=== PATIENT | female | born 1970 | race Caucasian/White ===

== ENCOUNTER → 2020-06-15 10:16 | Outpatient (BNVA) | payer MEDICARE, MEDICAID, SELFPAY | PROVIDERS: Family Provider Family Medicine; PCP Family Medicine; Visit Provider Family Medicine | DX: Z12.31 Encounter for screening mammogram for malignant neoplasm of breast (principal); E05.90 Thyrotoxicosis, unspecified without thyrotoxic crisis or storm; E78.00 Pure hypercholesterolemia, unspecified; J45.909 Unspecified asthma, uncomplicated; I10 Essential (primary) hypertension; F41.9 Anxiety disorder, unspecified; Z00.00 Encounter for general adult medical examination without abnormal findings; M51.9 Unspecified thoracic, thoracolumbar and lumbosacral intervertebral disc disorder; F32.9 Major depressive disorder, single episode, unspecified | CPT/HCPCS: 80053; 80061; 84443; 85025 ==

== ENCOUNTER → 2020-10-02 10:06 | Outpatient (BNVA) | payer MEDICARE, MEDICAID, SELFPAY | PROVIDERS: Family Provider Family Medicine; PCP Family Medicine; Visit Provider Family Medicine | DX: E05.90 Thyrotoxicosis, unspecified without thyrotoxic crisis or storm (principal); E78.00 Pure hypercholesterolemia, unspecified; F32.9 Major depressive disorder, single episode, unspecified; I10 Essential (primary) hypertension | CPT/HCPCS: 80061; 84443 ==

== ENCOUNTER → 2021-04-17 14:52 | Outpatient (BNVA) | payer MEDICARE, MEDICAID, SELFPAY | PROVIDERS: Family Provider Family Medicine; PCP Family Medicine; Visit Provider Family Medicine | DX: Z72.51 High risk heterosexual behavior (principal); Z76.89 Persons encountering health services in other specified circumstances; J30.1 Allergic rhinitis due to pollen; M51.9 Unspecified thoracic, thoracolumbar and lumbosacral intervertebral disc disorder; F41.9 Anxiety disorder, unspecified; F32.9 Major depressive disorder, single episode, unspecified; Z72.0 Tobacco use | CPT/HCPCS: 87491; 87591 ==

== ENCOUNTER → 2021-10-02 14:34 | Outpatient (BNVA) | payer MEDICARE, MEDICAID, SELFPAY | PROVIDERS: Family Provider Family Medicine; PCP Family Medicine; Visit Provider Nurse Practitioner Family | DX: J02.9 Acute pharyngitis, unspecified (principal); Z20.822 Contact with and (suspected) exposure to COVID-19 | CPT/HCPCS: 87635 ==

== ENCOUNTER → 2022-08-26 15:23 | Outpatient (BNVA) | payer MEDICARE, MEDICAID, SELFPAY | PROVIDERS: Family Provider Family Medicine; PCP Family Medicine; Visit Provider Family Medicine | DX: E05.90 Thyrotoxicosis, unspecified without thyrotoxic crisis or storm (principal); I10 Essential (primary) hypertension; E78.00 Pure hypercholesterolemia, unspecified; Z00.00 Encounter for general adult medical examination without abnormal findings; Z23 Encounter for immunization; M51.9 Unspecified thoracic, thoracolumbar and lumbosacral intervertebral disc disorder; Z72.0 Tobacco use; F41.9 Anxiety disorder, unspecified; F32.9 Major depressive disorder, single episode, unspecified | CPT/HCPCS: 80053; 80061; 84443; 85025 ==

== ENCOUNTER → 2023-08-04 09:37 | Outpatient (BNVA) | payer MEDICARE, MEDICAID, SELFPAY | PROVIDERS: Family Provider Family Medicine; PCP Family Medicine; Visit Provider Family Medicine | DX: E78.00 Pure hypercholesterolemia, unspecified (principal); E05.90 Thyrotoxicosis, unspecified without thyrotoxic crisis or storm; I10 Essential (primary) hypertension | CPT/HCPCS: 80053; 84443; 85025 ==

== ENCOUNTER 2024-05-28 06:58 | Outpatient (CLI) | payer MEDICARE, MEDICAID, SELFPAY ==
--- NOTE | 2024-05-28 07:15 | US_ITS ---
WS: [id number] RIGHT UPPER QUADRANT ULTRASOUND HISTORY: worsening post prandial abdominal pain COMPARISON: None available. Liver: 14.8 cm in length. Normal size liver and echogenicity. No bile duct dilatation or mass. Portal Vein: Normal hepatopetal flow with monophasic waveform. Gallbladder: Well-distended gallbladder with numerous stones. No pericholecystic fluid. No wall thick ening. CBD: 0.3 cm Pancreas: Not visualized. Right kidney: 9.5 cm in length. Normal size and echogenicity. No hydronephrosis or mass. Aorta and IVC: Unremarkable abdominal aorta and IVC. No ascites. US/US gall bladder [id number] IMPRESSION: Cholelithiasis without acute cholecystitis.
== END 2024-05-28 06:59 | disposition home or self-care (01) ==
LOC: RAD 06:59
PROVIDERS: Family Provider Family Medicine; PCP Family Medicine; Visit Provider Family Medicine
DX: K80.20 Calculus of gallbladder without cholecystitis without obstruction (principal)
CPT/HCPCS: 76705

== ENCOUNTER → 2024-06-08 09:51 | Outpatient (BNVA) | payer MEDICARE, MEDICAID, SELFPAY | PROVIDERS: Family Provider Family Medicine; PCP Family Medicine; Referring Provider Family Medicine; Visit Provider Student in an Organized Health Care Education/Training Program | DX: K80.20 Calculus of gallbladder without cholecystitis without obstruction (principal) | CPT/HCPCS: 99204 ==

== ENCOUNTER 2024-06-14 07:34 | Day surgery (SDC) | payer MEDICARE, MEDICAID, SELFPAY ==
--- NOTE | 2024-06-12 17:17 | P.ANESASSM_ITS ---
Pre-Anesthetic Assessment Height/Weight: Height 5 ft 4 in Preop Diagnosis: Cholecystitis Operation Date: 06/14/24 09:10 Proposed Procedures p Laparoscopic Cholecystectomy 77696, K80.20(Not Applicable) - Javier Castro MD Was Beta Chichi taken within 24 hours: N/A Was Clonidine taken within 24 hours: N/A Social Tobacco and No alcohol Exam alert, oriented x 3, clear to auscultation bilaterally and regular rate & rhythm Airway Submandibular: within normal limits Cervical ROM: within normal limits Mallampati: Class I Dentition: other (Edentulous) Anesthetic Plan ASA status: 3 Anesthesia: General Other: No prior issues with anesthesia NPO since midnight Current smoker GERD, controlled with omeprazole Hypothyroidism on Synthroid Hypertension, takes hydrochlorothiazide Labs ordered Plan for GETA Medications/Allergies Home Medications Medication Instructions Recorded Confirmed Last Taken Type gabapentin 600 mg tablet 600 mg PO BID 90 days #180 tabs 07/08/23 06/11/24 06/13/24 Rx levothyroxine 50 mcg tablet 50 mcg PO DAILY 90 days #90 tabs 07/08/23 06/11/24 06/14/24 Rx diclofenac sodium 1 % topical gel 2 g topical QID #100 grams 08/04/23 06/11/24 06/13/24 Rx (Voltaren Arthritis Pain) hydrochlorothiazide 25 mg tablet 25 mg PO DAILY #90 tabs 09/11/23 06/11/2406/13 Rx vitamin#30 30 mg iron-10 1 cap PO DAILY anemia #90 caps 12/01/23 06/11/24 06/13/24 Rx mg iron-folic acid 1 mg-omg3 capsule fluoxetine 20 mg capsule 20 mg PO DAILY 90 days #90 caps 03/09/24 06/11/24 06/13/24 Rx albuterol sulfate 90 mcg/actuation 2 puff inhalation Q6H PRN 05/06/24 06/11/24 06/13/24 Rx aerosol inhaler shortness of breath or wheezing #8.5 grams hydrocodone 10 mg-acetaminophen 1 tab PO BID PRN pain 30 days #60 05/06/24 06/11/24 06/13/24 Rx 325 mg tablet tabs omeprazole 20 mg capsule,delayed 20 mg PO BID #180 caps 05/06/24 06/11/24 06/13/24 Rx release pseudoephedrine HCl 60 mg tablet 60 mg PO Q6H PRN nasal congestion 05/06/24 06/11/24 06/13/24 Rx #30 tabs alprazolam 0.5 mg tablet 0.5 mg PO QID PRN Anxiety 06/11/24 06/11/24 06/13/24 History potassium chloride 10 mEq 10 meq PO BID 06/11/24 06/11/24 06/13/24 History tablet,extended release Allergies Allergy/AdvReac Type Severity Reaction Status Date / Time No Known Allergies Allergy Verified 06/11/24 12:18 [facility] Anesthesia Medical History GERD without esophagitis Psychiatric care Nicotine abuse Seasonal allergic rhinitis Intervertebral disc disease Anxiety and depression Asthma Hyperthyroidism Hypertension Hypercholesteremia Social History Smoking and tobacco/nicotine status: current every day tobacco/nicotine user Alcohol intake: never Substance/Drug Use: former Data Anesthesia Cardiac Studies: No Data to Display
[2024-06-14] VITALS (13 sets, daily range): BP systolic 92–124; BP diastolic 59–85; PULSE 62–85; RESP 13–26; TEMP 36.1–36.4; O2SAT 96–99
[2024-06-14] MEDS: sodium chloride 0.9% 1,000 ML 30 ML IV (07:54)
--- NOTE | 2024-06-14 09:58 | W.PM.OPSFHP ---
Same Day Surgery H&P Indication for Procedure/HPI DATE OF PROCEDURE: June 14, 2024 CHIEF COMPLAINT/INDICATIONFOR SURGICAL PROCEDURE: cholecystitis PREOP DIAGNOSIS: Cholecystitis PLANNED PROCEDURE: Operation Date: 06/14/24 09:55 Proposed Procedures p Laparoscopic Cholecystectomy 19239, K80.20(Not Applicable) - Javier Castro MD Medications/Allergies* Home Medications Medication Instructions Recorded Confirmed Type alprazolam 0.5 mg tablet 0.5 mg PO QID PRN Anxiety 06/11/24 06/11/24 History potassium chloride 10 mEq 10 meq PO BID 06/11/24 06/11/24 History tablet,extended release Allergies/Adverse Reactions Allergy/AdvReac Type Severity Reaction Status Date / Time No Known Allergies Allergy Verified 06/11/24 12:18 Current Medications: Generic Name Dose Route Start Last Admin Trade Name Freq PRN Reason Stop Dose Admin Sodium Chloride 1,000 mls @ 30 mls/hr 06/14/24 07:45 06/14/24 07:54 Sodium Chloride 0.9% IV 06/15/24 07:44 30 mls/hr .Q24H SAILAJA Administration Pertinent History/Comorbid Conditions* Medical History (Updated 05/28/24 @ 11:15 by Britany Wolff MD) GERD without esophagitis Psychiatric care Nicotine abuse Seasonal allergic rhinitis Intervertebral disc disease Anxiety and depression Asthma Hyperthyroidism Hypertension Hypercholesteremia Social History Smoking and tobacco/nicotine status: current every day tobacco/nicotine user Alcohol intake: never Substance/Drug Use: former Pertinent Exam Findings alert, oriented x 3, clear to auscultation bilaterally, regular rate & rhythm and procedure specific exam findings Abdomen soft, NT, ND Recommendations Surgery/Procedure today Other Plans: OR today for lap elsa, possible open Coding Level of Care Code Acute Code for Chg Fwd Time Spent (min) 30
[2024-06-14 10:15] LABS: Basophils # 0.1 10^3/uL (0.0-0.1); Basophils % 0.7 %; Eosinophils # 0.4 10^3/uL (0.0-0.8); Eosinophils % 4.7 %; Hematocrit 37.4 % (36-47); Lymphocytes # 2.9 10^3/uL (0.8-4.8); Lymphocytes % 38.5 %; Mean Corpuscular HGB Conc 33.4 g/dL (30-55); Mean Corpuscular Hemoglobin 27.1 pg (27-33); Mean Platelet Volume 8.7 fL (7.4-10.4); Monocytes # 0.7 10^3/uL (0.2-0.9); Monocytes % 8.5 %; Neutrophils # 3.62 10^3/uL (1.8-7.7); Neutrophils % 47.5 %; Nucleated Red Blood Cells % 0 %; Platelet Count 301 10^3/cmm (157-399); Red Blood Count 4.62 10^6/uL (3.85-5.65); Red Cell Distribution Width 12.9 % (12.1-15.1); White Blood Count 7.62 10^3/uL (3.29-11.43)
[2024-06-14 10:37] LABS: Blood Urea Nitrogen 16 mg/dL (6-20); Calcium 8.8 mg/dL (8.5-10.5); Carbon Dioxide 28 mmol/L (22-29); Chloride 102 mmol/L (98-107); Creatinine Clr Calc Pharmacy 87.7541; Glomerular Filtration Rate 87.9 mL/min (90-130); Glucose 104 mg/dL (65-115); Osmolality Calculated 289 mOsm/kg (285-295); Sodium 139 mmol/L (136-145)
[2024-06-14 10:38] LABS: Anion Gap 13.1 (5-19); Potassium 4.1 mmol/L (3.5-5.1)
[2024-06-14] MEDS: ceFAZolin 2,000 mg SDV 2000 MG IVP (10:48)
[2024-06-14] MEDS: lidocaine-epi 2% PF 1:200,000 20 mL SDV XX (11:00)
[2024-06-14] MEDS: BUPivacaine 0.25% INJ 10 mL INJECTION (11:00)
--- NOTE | 2024-06-14 12:10 | W.PM.BPONFUL ---
Pathology: gallbladder with multiple large stones Implant(s): NA Anesthesia: general anesthesia Complications: NA Brief history/preop diagnosis: 54yo female who presents with symptomatic cholelithiasis. Risks and benefits were discussed and patient agreed to proceed with laparoscopic cholecystectomy. Full operative report: I discussed the risks and benefits of laparoscopic cholecystectomy, and obtained consent prior to proceeding to the operating room. SCDs were utilized. Prophylactic antibiotics were administered. General anesthesia was induced. The patient was placed supine, and she was prepped and draped in the usual sterile fashion. Insufflation to 15mmHg was achieved using a Veress needle at [place]. A 5mm optiview trocar was placed at the umbilicus under direct visualization. The left upper quadrant was inspected, and no injuries were noted. Two 5mm ports were placed in the right upper quadrant, and a 12mm working port was placed in the epigastrium. The gallbladder was then retracted cephalad through the lateral RUQ port, and the infundibulum grabbed through the medial RUQ port and retracted laterally. The gallbladder was not inflammed but contained multiple large stones and thus consistent with her diagnosis of symptomatic cholelithiasis. I proceeded to score the peritoneum over the medial aspect of the gallbladder using a laparoscopic hook with electrocautery. Then the infundibulum was retracted medially in order to score the peritoneum over the lateral aspect of the galbladder. Using a combination of energy and blunt dissection with the [place] and a Kittner dissector, the cystic artery and cystic duct were dissected. I then proceeded to dissect the cystic plate in order to to achieve the critical view of safety. The cystic artery and the cystic duct were clipped three times (leaving two clips on the proximal end of both structures). I then proceeded to dissect the gallbladder off the liver using hook electrocautery. The specimen was placed in an endocatch bag and retrieved from the abdomen through the port on the epigastrium. I then irrigated the gallbladder fossa with 2L of NS to confirm adequate hemostasis and the absence of any bile leaks. The gallbladder fossa was then cauterized again. Prior to ending the laparoscopic portion, I examined the rest of the abdomen and did not find any abnormalities or injuries. The abdomen was then desufflated, and the 12mm port in the epigastrium was closed using 0 vicryl on a UR needle after irrigating copiously. Skin was closed using 4-0 monocryl and surgical glue. The patient woke up from anesthesia and transferred to PACU without any complications. Condition: stable Dispostion: home
[2024-06-14] MEDS: fentaNYL 50 mcg/mL INJ 2mL IVP (12:45)
--- NOTE | 2024-06-14 13:38 | ANE.PACU2 ---
Inpatient post-anesthesia follow up: Airway intact: Yes Vital signs: Temperature 97.3 F Pulse Rate 63 Respiratory Rate 18 Blood Pressure 96/59 Pulse Oximetry 96 Oxygen Delivery Me thod Room Air Oxygen Flow Rate 6 Fraction of Inspir ed Oxygen Hydration adequate: Yes Nausea and vomiting: No Pain level: 1 Mental status: Baseline
== END 2024-06-14 13:38 | disposition home or self-care (01) ==
PROVIDERS: Student in an Organized Health Care Education/Training Program; PCP Family Medicine; Visit Provider Student in an Organized Health Care Education/Training Program
PROC: 0FT44ZZ Resection of Gallbladder, Percutaneous Endoscopic Approach (ICD-10-PCS; CPT 47562; principal; 2024-06-14 09:45)
DX: K80.10 Calculus of gallbladder with chronic cholecystitis without obstruction (principal); K21.9 Gastro-esophageal reflux disease without esophagitis; E03.9 Hypothyroidism, unspecified; I10 Essential (primary) hypertension; E78.00 Pure hypercholesterolemia, unspecified; F17.200 Nicotine dependence, unspecified, uncomplicated
CPT/HCPCS: 47562; 80048; 85025; 88304; J0131; J0690; J1100; J1170; J1885; J2250; J2371; J2405; J2704; J2710; J3010; J3490; J7030

== ENCOUNTER → 2024-06-28 08:21 | Outpatient (BNVA) | payer MEDICARE, MEDICAID, SELFPAY | PROVIDERS: Family Provider Family Medicine; PCP Family Medicine; Visit Provider Student in an Organized Health Care Education/Training Program | DX: Z90.49 Acquired absence of other specified parts of digestive tract (principal); Z98.890 Other specified postprocedural states | CPT/HCPCS: 99024 ==

== ENCOUNTER 2024-12-14 11:34 | Outpatient (CLI) | payer MEDICARE, MEDICAID, SELFPAY ==
--- NOTE | 2024-12-14 11:40 | MM_ITS ---
WS: [id number] BILATERAL 3D TOMOSYNTHESIS DIGITAL SCREENING MAMMOGRAPHY WITH CAD CLINICAL INFORMATION: Z12.39 - Encounter for other screening for malignant neop... HISTORY: Screening mammogram. No current complaints. COMPARISON: 2016 TECHNIQUE: Bilateral CC and MLO views. FINDINGS: Scattered fibroglandular densities bilaterally. No suspicious focal mass, asymmetry, calcifications, or architectural distortion. No evidence of malignancy. MM/MM scr tomosynthesis [id number] IMPRESSION: DENSITY: There are scattered areas of fibroglandular density. BI-RADS: 1 - Negative. FOLLOW UP: 1 Year Follow-up Recommend return to annual screening mammography.
== END 2024-12-14 11:35 | disposition home or self-care (01) ==
LOC: MOBLMAM 11:38
PROVIDERS: Family Provider Family Medicine; PCP Family Medicine; Visit Provider Family Medicine
DX: Z12.31 Encounter for screening mammogram for malignant neoplasm of breast (principal); R92.323 Mammographic fibroglandular density, bilateral breasts
CPT/HCPCS: 77063; 77067

== ENCOUNTER 2025-01-10 11:25 | Emergency (ER) | payer MEDICARE, MEDICAID, SELFPAY ==
[2025-01-10 11:33] VITALS: BP 120/83; PULSE 90; TEMP 36.7; O2SAT 96; BMI 23.1
--- NOTE | 2025-01-10 11:34 | XRR_ITS ---
PROCEDURE INFORMATION: Exam: XR Left Ankle Exam date and time: 01/10/2025 11:47 AM Age: 54 years old Clinical indication: Injury or trauma; Fall; Blunt trauma; Ankle; Left TECHNIQUE: Imaging protocol: Radiologic exam of the left ankle. Views: 3 or more views. COMPARISON: CR XR foot LT min 3V* [id number] 01/10/2025 11:46 AM FINDINGS: Bones/joints: No fracture or dislocation is noted. There are mild degenerative changes. Soft tissues: Normal. XR/XR ankle LT min 3V* [id number] IMPRESSION: No acute findings.
--- NOTE | 2025-01-10 11:34 | XRR_ITS ---
PROCEDURE INFORMATION: Exam: XR Left Foot Exam date and time: 01/10/2025 11:46 AM Age: 54 years old Clinical indication: Injury or trauma; Other: Not specified; Blunt trauma; Foot; Left TECHNIQUE: Imaging protocol: Radiologic exam of the left foot. Views: 3 or more views. COMPARISON: No relevant prior studies available. FINDINGS: Bones/joints: There may be a fracture involving the distal phalanx of the 4th digit. This is not definite. Appearance could be related to pseudo fracture secondary to over hanging edges. Recommend clinical correlation. No fractures are otherwise noted. There is no evidence of a dislocation. Bony mineralization is normal. Soft tissues: Normal. XR/XR foot LT min 3V* [id number] IMPRESSION: 1. Possible fracture involving the distal phalanx of the 4th digit. Recommend clinical correlation.
--- NOTE | 2025-01-10 11:43 | ED_ITS ---
HPI - Extremity Problem General: Chief complaint: Extremity Injury, Lower Stated complaint: L foot injury Time Seen by Provider: 01/10/25 11:33 Source: patient Mode of arrival: ambulatory Limitations: no limitations History of Present Illness: 54-year-old female states she was walkin g prior to arrival and twisted her left ankle. States she inverted her ankle and has pain to the left lateral ankle s tates she had felt a pop has some slight swelling she rates her pain 8 out of 10 currently states she is unable to bear weight denies any other injury Associated symptoms: Deny chest pain, fever(s) or rash Related Data Home Medications ?Medication ?Instructions ?Recorded ?Confirmed potassium chloride 10 mEq 10 meq PO BID 06/11/2412/16 tablet,extended release Previous Rx's ?Medication ?Instructions ?Recorded diclofenac sodium 1 % topical gel 2 g topical QID #100 grams 08/04/23 (Voltaren Arthritis Pain) fluoxetine 20 mg capsule 20 mg PO DAILY 90 days #90 c aps 07/19/24 hydrochlorothiazide 25 mg tablet 25 mg PO DAILY #90 ta bs 07/19/24 levothyroxine 50 mcg tablet 50 mcg PO DAILY 90 days #9 0 tabs 07/19/24 vitamin#30 30 mg iron-10 1 cap PO DAILY anemi a #90 caps 08/18/24 mg iron-folic acid 1 mg-omg3 capsule alprazolam 0.5 mg tablet 0.5 mg PO QID PRN Anxiety 30 days 11/18/24 #120 tabs albuterol sulfate 90 mcg/actuation 2 puff inhalation Q 6H PRN 12/16/24 aerosol inhaler shortness of breath or wheez ing #8.5 grams prednisone 20 mg tablet 20 mg PO .COMPLEX #20 tabs 0 12/16/24 pseudoephedrine HCl 60 mg tablet 60 mg PO .q 8 hours P RN nasal 12/16/24 congestion #20 tabs hydrocodone 10 mg-acetaminophen 1 tab PO BID PRN pain 30 days #60 12/22/24 325 mg tablet tabs gabapentin 600 mg tablet See Rx Instructions .Route 0 01/06/25 .COMPLEX #180 tabs omeprazole 20 mg capsule,delayed See Rx Instructions . Route 01/06/25 release .COMPLEX #180 caps naproxen 500 mg tablet (Naprosyn) 500 mg PO BID PRN pa in #20 tabs 01/10/25 Allergies Allergy/AdvReac Type Severity Reaction Status Date / Time No Known Allergies Allergy Verified 01/10/25 11:37 Review of Systems Const: Denies: fever(s), chills, body aches or change in appetite ENMT: Denies: throat pain or dental pain Card: Denies: chest pain Resp: Denies: dyspnea GI: Denies: abdominal pain, nausea, vomiting or diarrhea Musc: Reports: extremity pain; Denies: neck pain or back pain Skin/Breast: Denies: rash Neuro: Denies: headache(s) PFSH ED PFSH: Medical History GERD without esophagitis Nicotine abuse Seasonal allergic rhinitis Intervertebral disc disease Anxiety and depression Asthma Hyperthyroidism Hypertension Hypercholesteremia Social History Smoking and tobacco/nicotine status: current every day tobacco/nicotine user Alcohol intake: never Substance/Drug Use: former Physical Exam Const: COMMON NORMALS: no acute distress, patient oriented x3 and healthy appearing HENMT: COMMON NORMALS: normocephalic HEAD & SCALP: normocephalic Eye: COMMON NORMALS: conjunctivae normal CONJUNCTIVA: Yes conjunctivae normal Neck/C-Spine: COMMON NORMALS: full ROM and supple Chest: COMMONS NORMALS: normal inspection of the chest Resp: COMMON NORMALS: normal respiratory effort Cardio: COMMON NORMALS: regular rate RATE: regular rate Extremity: NARRATIVE EXTREMITY EXAM: Tenderness noted left lateral ankle Neuro: COMMON NORMALS: patient oriented x3, moves all extremities and no focal motor deficits Psych: COMMON NORMALS: mental status grossly normal, Normal thought process present and cooperative THOUGHT PROCESS: Normal thought process present Skin: COMMON NORMALS: no rashes or lesions noted and no wounds GENERAL SKIN EXAM: no rashes or lesions noted Course Vital Signs: Vital signs: Vital Signs Temperature 98.1 F 01/10/25 11:33 Pulse Rate 90 01/10/25 11:33 Blood Pressure 120/83 01/10/25 11:33 Pulse Oximetry 96 01/10/25 11:33 Oxygen Delivery Me thod Room Air 01/10/25 11:33 MDM - Extremity (Nontraumatic) Medical Decision Making Patient presents with a left ankle sprain no obvious fracture noted she does have pain we will mobilize her she is to weight-bear as tolerated we will prescribe her Naprosyn placed on crutches she is to follow-up with podiatry. Medical Records I reviewed the patient's medical records. Lab Data Radiology Impressions Foot X-Ray 01/10/25 11:34 IMPRESSION: 1. Possible fracture involving the distal phalanx of the 4th digit. Recommend clinical correlation. XR interpretation done by ED provider, pending radiology final review ED provider radiology interpretation(s): X-ray foot no acute fracture X-ray ankle no acute fracture Discharge Plan Discharge Patient Disposition: Home Clinical Impression: Ankle sprain and strain Condition: Stable Prescriptions: New naproxen [Naprosyn] 500 mg tablet 500 mg PO BID PRN (Reason: pain) Qty: 20 0RF No Action lidocaine-epinephrine 2 %-1:100,000 solution 1 ml SUBCUT ONCE Qty: 1 0RF lidocaine (PF) 20 mg/mL (2 %) solution 10 mg SUBCUT ONCE Qty: 0.5 0RF diclofenac sodium [Voltaren Arthritis Pain] 1 % gel 2 g topical QID Qty: 100 4RF Rx Instructions: apply to base of thumb albuterol sulfate 90 mcg/actuation HFA aerosol inhaler 2 puff INHALATION Q6H PRN (Reason: shortness of breath or wheezing) Qty: 8.5 4RF prednisone 20 mg tablet 20 mg PO .COMPLEX Qty: 20 0RF Rx Instructions: 3 tabs daily for 3 days, then decrease by 1/2 tablet every other day pseudoephedrine HCl 60 mg tablet 60 mg PO .q 8 hours PRN (Reason: nasal congestion) Qty: 20 0RF fluoxetine 20 mg capsule 20 mg PO DAILY 90 Days Qty: 90 3RF hydrochlorothiazide 25 mg tablet 25 mg PO DAILY Qty: 90 2RF levothyroxine 50 mcg tablet 50 mcg PO DAILY 90 Days Qty: 90 2RF PNV #[id number] 30 mg iron-10 mg iron-1 mg capsule 1 cap PO DAILY Qty: 90 3RF alprazolam 0.5 mg tablet 0.5 mg PO QID PRN (Reason: Anxiety) 30 Days Qty: 120 3RF hydrocodone-acetaminophen 10-325 mg tablet 1 tab PO BID PRN (Reason: pain) 30 Days Qty: 60 0RF omeprazole 20 mg capsule,delayed release(DR/EC) See Rx Instructions .ROUTE .COMPLEX Qty: 180 1RF Dose Instruction: TAKE ONE CAPSULE BY MOUTH TWICE DAILY Rx Instructions: TAKE ONE CAPSULE BY MOUTH TWICE DAILY gabapentin 600 mg tablet See Rx Instructions .ROUTE .COMPLEX Qty: 180 1RF Dose Instruction: TAKE ONE TABLET BY MOUTH TWICE DAILY Rx Instructions: TAKE ONE TABLET BY MOUTH TWICE DAILY potassium chloride 10 mEq tablet extended release 10 meq PO BID Discharge Orders: Discharge ED (Routine); Ordered 01/10/25 Ordered By: Gabbi Mcclain Referrals: Britany Wolff MD [Primary Care Provider] - Mustapha Jackson DPM [Physician] - 4-7 days Discharge Diet: Advance as tolerated Discharge Activity: Limit activity as instructed and Use walker/crutches as instructed Patient Instructions: Ankle Sprain (ED) Print Language: Cymraes Coding Level of Care Code ED Lithographic Etcher for Arnoldo Noyola
[2025-01-10] MEDS: HYDROcodone-acetaminophen 7.5-325 mg Tablet 1 TAB PO (12:18)
[2025-01-10 12:26] VITALS: BP 121/77; PULSE 86; O2SAT 95
--- NOTE | 2025-01-10 14:13 | DCPLANNER ---
messaged podiatry for er f/u
== END 2025-01-10 12:27 | disposition home or self-care (01) ==
PROVIDERS: Emergency Provider Emergency Medicine; PCP Family Medicine
DX: S93.402A Sprain of unspecified ligament of left ankle, initial encounter (principal); Z72.0 Tobacco use; I10 Essential (primary) hypertension; X58.XXXA Exposure to other specified factors, initial encounter
CPT/HCPCS: 29515; 73610; 73630; 99283; J9999

== ENCOUNTER 2025-01-11 14:41 | Outpatient (CLI) | payer MEDICARE, MEDICAID, SELFPAY | END 2025-01-11 14:42 | disposition home or self-care (01) | LOC: SPT 14:42 | PROVIDERS: PCP Family Medicine; Visit Provider Podiatrist Foot & Ankle Surgery | DX: Z46.89 Encounter for fitting and adjustment of other specified devices (principal); S93.409D Sprain of unspecified ligament of unspecified ankle, subsequent encounter; S96.919D Strain of unspecified muscle and tendon at ankle and foot level, unspecified foot, subsequent encounter; X58.XXXD Exposure to other specified factors, subsequent encounter; M95.8 Other specified acquired deformities of musculoskeletal system | CPT/HCPCS: 97760; 99204; L4361 ==

== ENCOUNTER 2025-01-17 12:51 | Outpatient (CLI) | payer MEDICARE, MEDICAID, SELFPAY ==
--- NOTE | 2025-01-17 13:00 | MRR_ITS ---
PROCEDURE INFORMATION: Exam: MR Left Lower Extremity Joint Without Contrast; Ankle Exam date and time: 01/17/2025 1:10 PM Age: 54 years old Clinical indication: Injury or trauma; Other: Twisted ankle; Sprain or strain; Injury date: 01/10/25; Injury details: Patient states she injured left ankle was injured while she was mushroom hunting on uneven ground. The ankle twisted inward, causing significant pain/ patient's history includes previous ankle sprains/ TECHNIQUE: Imaging protocol: Magnetic resonance imaging of the left lower extremity without contrast. Exam focused on the ankle. COMPARISON: CR XR ankle LT min 3V* [id number] 01/10/2025 11:47 AM FINDINGS: Bones/joints: Large subacute-chronic subchondral fracture/osteochondral defect of the posterior talar dome measuring approximately 25 mm transverse by 14 mm AP there is mild associated flattening/subchondral collapse (osteochondritis desiccans). Increased T2 signal subjacent to the cortex in this region raising the question of underlying osteonecrosis and cortical instability. Small tibiotalar and trace-small subtalar joint effusions. Subtle avulsive injury of the anteroinferior tip of the lateral malleolus of the anterior talofibular ligament attachment with mild marrow edema, favored to be subacute. Mild marrow edema of the medial malleolus as well. Posterior malleolus is intact. Alignment is maintained. Focal 2 cm signal abnormality in the posterior process of the calcaneus suggestive of a medullary bone infarct. LIGAMENTS: Distal tibiofibular syndesmosis: Partial tear of the distal anterior tib fib syndesmotic ligament on a background of sprain. Posterior syndesmotic ligament and visualized interosseous membrane are intact. Anterior talofibular ligament: High-grade tear. Posterior talofibular ligament: Intact. Calcaneofibular ligament: Intact. Deltoid ligament complex: Intact. TENDONS: Flexor tendons of foot: Intact. Tibialis posterior tendon: Intact. Peroneal tendons: Intact. Mild tenosynovitis. Extensor tendons of foot: Intact. Tibialis anterior tendon: Intact. Achilles tendon: Intact. Soft tissues: Mild soft tissue edema, particularly anterolateral without fluid collection or hematoma. Plantar fascia: Plantar fascia is intact. MR/MR ankle LT wo con* [id number] IMPRESSION: 1. 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 2. Sequela of recent supination injury with high-grade tear of the anterior talofibular ligament and partial tear of the distal tib fib syndesmotic ligament. 3. 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 4. Subtle avulsive injury of the anteroinferior tip of the lateral malleolus.
== END 2025-01-17 12:52 | disposition home or self-care (01) ==
PROVIDERS: PCP Family Medicine; Visit Provider Podiatrist Foot & Ankle Surgery
DX: S93.492S Sprain of other ligament of left ankle, sequela (principal); M95.8 Other specified acquired deformities of musculoskeletal system; W19.XXXA Unspecified fall, initial encounter; M93.272 Osteochondritis dissecans, left ankle and joints of left foot; S93.432A Sprain of tibiofibular ligament of left ankle, initial encounter; R93.6 Abnormal findings on diagnostic imaging of limbs; M25.472 Effusion, left ankle; M65.872 Other synovitis and tenosynovitis, left ankle and foot
CPT/HCPCS: 73721

== ENCOUNTER → 2025-01-25 08:07 | Outpatient (BNVA) | payer MEDICARE, MEDICAID, SELFPAY | PROVIDERS: PCP Family Medicine; Visit Provider Podiatrist Foot & Ankle Surgery | DX: S93.402A Sprain of unspecified ligament of left ankle, initial encounter (principal); S96.912A Strain of unspecified muscle and tendon at ankle and foot level, left foot, initial encounter; X58.XXXA Exposure to other specified factors, initial encounter | CPT/HCPCS: 99214 ==

== ENCOUNTER → 2025-02-07 07:58 | Outpatient (BNVA) | payer MEDICARE, MEDICAID, SELFPAY | PROVIDERS: PCP Family Medicine; Visit Provider Podiatrist Foot & Ankle Surgery | DX: M95.8 Other specified acquired deformities of musculoskeletal system (principal); S93.402A Sprain of unspecified ligament of left ankle, initial encounter; S96.912A Strain of unspecified muscle and tendon at ankle and foot level, left foot, initial encounter; X58.XXXA Exposure to other specified factors, initial encounter | CPT/HCPCS: 73610; 99214 ==

== ENCOUNTER 2025-03-03 09:09 | Outpatient (CLI) | payer MEDICARE, MEDICAID, SELFPAY | END 2025-03-03 09:10 | disposition home or self-care (01) | LOC: SPT 09:10 | PROVIDERS: PCP Family Medicine; Visit Provider Orthopaedic Surgery | DX: Z46.89 Encounter for fitting and adjustment of other specified devices (principal); M79.644 Pain in right finger(s) | CPT/HCPCS: L3809 ==

== ENCOUNTER 2025-03-03 09:49 | Outpatient (CLI) | payer OTHER, MEDICAID, SELFPAY ==
--- NOTE | 2025-03-03 10:15 | MR_ITS ---
WS: [id number] MRI LUMBAR SPINE NONCONTRAST HISTORY: worsening pain and gait in recent months COMPARISON: 04/05/2016 TECHNIQUE: Sagittal and axial multisequence imaging is submitted. Posterior lumbar fusion at L5-S1 with interbody spacer without complications. L4 anterolisthesis by 8.7 mm has increased from 5 mm on the prior study from 2016. Mild narrowing of the L4-5 disc. No acute fracture. Conus terminates normally at L1-2 disc level. L1-L2: Normal. L2-L3: Ligamentum flavum and facet arthritis. Small bilateral foraminal disc protrusions, RIGHT greater than LEFT. No contact on the nerve roots. L3-L4: Diffuse annular disc bulging with bilateral foraminal disc protrusions contacting the exiting L3 nerve roots. Mild central and subarticular recess narrowing. Moderate facet and ligamentum flavum hypertrophy. L4-L5: Diffuse annular disc bulging with uncovering of the disc by anterolisthesis of L4. Disc contacts the ventral thecal sac and subarticular recesses and the traversing L5 nerve roots. Bilateral foraminal disc protrusions also contact the exiting L4 nerve roots. Severe central, bilateral subarticular recess and foraminal stenosis. Stenosis has progressed since the prior exam. L5-S1: Large posterior laminectomy defect. No stenosis identified. Paravertebral soft tissues are negative. MR/MR lumbar spine wo con* [id number] IMPRESSION: 1. Prior posterior lumbar fusion at L5-S1 with interbody spacer. 2. Progression of anterolisthesis of L4 compared to 2016. Anterolisthesis has increased from 5 mm to 8.7 mm. 3. L4-5: Severe central, bilateral subarticular recess and foraminal stenosis which has progressed since the prior exam. There is disc contacting the L4 and L5 nerve roots bilaterally. 4. Large posterior laminectomy defect at L5-S1. 5. L3-4: Mild central and subarticular recess and foraminal narrowing. 6. L2-3: Small bilateral foraminal disc protrusions. No stenosis.
== END 2025-03-03 09:50 | disposition home or self-care (01) ==
PROVIDERS: PCP Family Medicine; Visit Provider Family Medicine
DX: Z98.1 Arthrodesis status (principal); M51.9 Unspecified thoracic, thoracolumbar and lumbosacral intervertebral disc disorder; M48.061 Spinal stenosis, lumbar region without neurogenic claudication; M79.644 Pain in right finger(s)
CPT/HCPCS: 72148; 99204

== ENCOUNTER → 2025-03-07 07:54 | Outpatient (BNVA) | payer OTHER, MEDICAID, SELFPAY | PROVIDERS: PCP Family Medicine; Visit Provider Podiatrist Foot & Ankle Surgery | DX: M95.8 Other specified acquired deformities of musculoskeletal system (principal); S93.402A Sprain of unspecified ligament of left ankle, initial encounter; S96.912A Strain of unspecified muscle and tendon at ankle and foot level, left foot, initial encounter; X58.XXXA Exposure to other specified factors, initial encounter | CPT/HCPCS: 73610; 99213 ==

== ENCOUNTER → 2025-03-15 15:29 | Outpatient (BNVA) | payer OTHER, MEDICAID, SELFPAY | PROVIDERS: PCP Family Medicine; Visit Provider Orthopaedic Surgery | DX: M43.16 Spondylolisthesis, lumbar region (principal); M54.9 Dorsalgia, unspecified | CPT/HCPCS: 72072; 72110; 99203 ==

== ENCOUNTER 2025-03-29 05:00 | Outpatient (RCR) | payer OTHER, MEDICAID, SELFPAY | END 2025-04-28 23:59 | disposition home or self-care (01) | LOC: SPT 05:00 | PROVIDERS: Visit Provider Orthopaedic Surgery | DX: M54.9 Dorsalgia, unspecified (principal); G89.29 Other chronic pain | CPT/HCPCS: 97110; 97161; G0283 ==

== ENCOUNTER → 2025-04-04 08:57 | Outpatient (BNVA) | payer OTHER, MEDICAID, SELFPAY | PROVIDERS: PCP Family Medicine; Visit Provider Podiatrist Foot & Ankle Surgery | DX: M25.572 Pain in left ankle and joints of left foot (principal); M95.8 Other specified acquired deformities of musculoskeletal system; S93.402A Sprain of unspecified ligament of left ankle, initial encounter; S96.912A Strain of unspecified muscle and tendon at ankle and foot level, left foot, initial encounter; X58.XXXA Exposure to other specified factors, initial encounter | CPT/HCPCS: 73610; 99213 ==

== ENCOUNTER 2025-04-29 05:00 | Outpatient (RCR) | payer OTHER, MEDICAID, SELFPAY | END 2025-05-29 23:59 | disposition home or self-care (01) | LOC: SPT 05:00 | PROVIDERS: PCP Family Medicine; Visit Provider Orthopaedic Surgery | DX: M54.9 Dorsalgia, unspecified (principal); G89.29 Other chronic pain | CPT/HCPCS: 97110 ==

== ENCOUNTER → 2025-05-05 12:54 | Outpatient (BNVA) | payer OTHER, MEDICAID, SELFPAY | PROVIDERS: PCP Family Medicine; Visit Provider Orthopaedic Surgery | DX: M43.16 Spondylolisthesis, lumbar region (principal) | CPT/HCPCS: 99213 ==

== ENCOUNTER 2025-05-30 05:00 | Outpatient (RCR) | payer OTHER, MEDICAID, SELFPAY | END 2025-06-28 23:59 | disposition home or self-care (01) | LOC: SPT 05:00 | PROVIDERS: PCP Family Medicine; Visit Provider Orthopaedic Surgery | DX: M54.9 Dorsalgia, unspecified (principal); G89.29 Other chronic pain | CPT/HCPCS: 97110 ==

== ENCOUNTER → 2025-06-30 10:27 | Outpatient (BNVA) | payer OTHER, MEDICAID, SELFPAY | PROVIDERS: PCP Family Medicine; Visit Provider Orthopaedic Surgery | DX: Z01.818 Encounter for other preprocedural examination (principal); M43.16 Spondylolisthesis, lumbar region | CPT/HCPCS: 36415; 80053; 81003; 85025; 99214 ==

== ENCOUNTER 2025-07-25 13:56 | Observation (INO) | payer OTHER, MEDICAID, SELFPAY ==
[2025-07-25] VITALS (22 sets, daily range): BP systolic 88–156; BP diastolic 48–86; PULSE 60–89; RESP 13–19; TEMP 36.4–36.9; O2SAT 92–97; BMI 25.5
--- NOTE | 2025-07-25 08:47 | ANES.PREANE2 ---
Pre-Anesthetic Assessment Height/Weight: Height 1.63 m Weight 67.585 kg O2 Del Method Room Air 07/25/25 08:12 Preop Diagnosis: Lumbar stenosis with neurogenic claudication Operation Date: 07/25/25 09:25 Proposed Procedures p Spinal Fusion PSF(Not Applicable) - Jason Christiansen, DO Familial anesthetic complications: none Was Beta Chichi taken within 24 hours: N/A Was Clonidine taken within 24 hours: N/A Last intake: Intake Last Liquid Date 07/24/25 Last Liquid Time 20:30 Last Solid Date 07/24/25 Last Solid Time 20:30 Social Tobacco and No alcohol Exam alert, oriented x 3, clear to auscultation bilaterally and regular rate & rhythm Airway Mallampati: Class I Dentition: other (none) Pulmonary Chronic Obstructive Pulmonary Disease CV/HEM Hypertension GI Gastroesophageal Reflux Disease Metabolic Thyroid Disease Anesthetic Plan ASA status: 3 Anesthesia: General Risk of > 500 ml blood loss (7ml/kg in children): No Medications/Allergies Home Medications ?Medication ?Instructions ?Recorded ?Confirmed ?Last Taken ?Type potassium chloride 10 mEq 10 meq PO BID 06/11/24 07/25/25 07/24/25 History tablet,extended release vitamins 30 30 mg iron-10 1 cap PO DAILY anemia #90 caps 08/18/24 07/25/25 07/24/25 Rx mg iron-folic acid 1 mg-om3 capsule albuterol sulfate 90 mcg/actuation 2 puff inhalation Q6H PRN 12/16/24 07/25/25 07/24/25 Rx aerosol inhaler shortness of breath or wheezing #8.5 grams CAM walker #1 ea 01/11/25 06/30/25 Unknown Rx diclofenac sodium 1 % topical gel 2 g topical QID #100 grams 02/24/25 07/25/25 07/21/25 Rx (Voltaren Arthritis Pain) right thumb Gauntlet #1 ea 03/03/25 06/30/25 Unknown Rx ASO to left #1 ea 03/07/25 06/30/25 Unknown Rx pseudoephedrine HCl 30 mg tablet 60 mg (2 x 30 mg) PO Q8H PRN Nasal 04/11/25 07/25/25 07/18/25 Rx (Sudogest) Congestion #20 tabs alprazolam 0.5 mg tablet 0.5 mg PO QID PRN Anxiety 30 days 07/11/25 07/25/25 07/25/25 Rx #120 tabs hydrocodone 10 mg-acetaminophen 1 tab PO BID PRN pain 30 days #60 07/20/25 07/25/25 07/25/25 Rx 325 mg tablet tabs fluoxetine 20 mg capsule 20 mg PO DAILY 07/21/25 07/25/25 07/24/25 History hydrochlorothiazide 25 mg tablet 25 mg PO DAILY 07/21/25 07/25/25 07/24/25 History levothyroxine 50 mcg tablet 50 mcg PO DAILY 07/21/25 07/25/25 07/25/25 History omeprazole 20 mg capsule,delayed 20 mg PO DAILY 07/21/25 07/25/25 07/24/25 History release Allergies Allergy/AdvReac Type Severity Reaction Status Date / Time No Known Allergies Allergy Verified 07/25/25 08:01 Current Medications Generic Name Dose Route Start Last Admin Trade Name Freq PRN Reason Stop Dose Admin Sodium Chloride 1,000 mls @ 30 mls/hr 07/25/25 08:15 07/25/25 08:22 Sodium Chloride 0.9% IV 07/26/25 08:14 30 mls/hr .Q24H SAILAJA Administration PFSH Anesthesia Medical History GERD without esophagitis Nicotine abuse Seasonal allergic rhinitis Intervertebral disc disease Anxiety and depression Mild intermittent asthma with acute exacerbation Hyperthyroidism Hypertension Hypercholesteremia Surgical History (Updated 07/11/25 @ 09:18 by MASOOD Martin) Hx of cholecystectomy History of spinal fusion History of carpal tunnel surgery Social History Smoking and tobacco/nicotine status: current every day tobacco/nicotine user Alcohol intake: never Substance/Drug Use: former
[2025-07-25] MEDS: ceFAZolin 2,000 mg SDV 2000 MG IVP ×2 (10:01→17:51)
--- NOTE | 2025-07-25 10:21 | W.PM.OPSUD ---
Surgery/Procedure H&P Update DATE OF PROCEDURE: July 25, 2025 DATE H&P PERFORMED: 06/30/25 H&P UPDATE INFORMATION: I have reviewed H&P completed within last 30 days, I have examined patient prior to procedure and No changes to prior documentation PREOP DIAGNOSIS: Lumbar stenosis with neurogenic claudication PLANNED PROCEDURE: Operation Date: 07/25/25 09:25 Proposed Procedures p Spinal Fusion PSF(Not Applicable) - Jason Christiansen DO
--- NOTE | 2025-07-25 10:40 | SUR.OPER ---
sister notified of surgical start.
[2025-07-25] MEDS: lidocaine-epi 1% 20 mL INJ INJECTION (10:46)
[2025-07-25] MEDS: heparin, porcine 1,000 unit/mL INJ 10 mL 10000 UNIT IRRIGATION (10:46)
[2025-07-25] MEDS: tobramycin 40 mg/mL SDV 2mL 120 MG XX (11:35)
--- NOTE | 2025-07-25 12:06 | PC.NURSE ---
Called and updated patient's sister on surgical progress
--- NOTE | 2025-07-25 13:00 | PM.OP ---
Operative Report Date of procedure: July 25, 2025 Pre-op diagnosis: Lumbar stenosis with neurogenic claudication Post-op diagnosis: same Procedure done: 1. L4/5 Interbody fusion with posterolateral fusion 2. Instrumentation L4- S1 3. Cage at L4/5 4. L4-5 laminectomy with facetectomy 5. use of autograft from same incision 6. allograft 7. Bone marrow aspirate from right iliac crest 8. Removal of hardware from spine 9. Use of computer navigation stereotactic for spine Surgeon: Jason Christiansen DO Estimated blood loss (mL): 250 Procedure: 1. L4/5 Interbody fusion with posterolateral fusion 2. Instrumentation L4- S1 3. Cage at L4/5 4. L4-5 laminectomy with facetectomy 5. use of autograft from same incision 6. allograft 7. Bone marrow aspirate from right iliac crest 8. Removal of hardware from spine patient is brought to the operative suite. 9. Use of computer navigation stereotactic for spine After undergoing anesthesia, the patient had neuro monitoring attached. Patient was then placed in the prone position on the Lewis table. All areas of impingement were well-padded. Patient was then prepped and draped in the normal sterile fashion. Skin incision was then made over the L4-S1 space. Subperiosteal dissection was made out to the transverse processes of L4 and L5 and S1 bilaterally. Once the exposure was complete attention was then brought to removing the pedicle screws therefore previously placed. These were Steffee screws as the plate. A wrench was used to move the knots that were on the screw. And this then the screw and plates removed. The [employer] bone marrow aspirate kit was used to aspirate bone marrow aspirate from the right iliac crest. This was done by using the sharp probe to open up the bone. Aspiration was performed and then the blunt probe was then used to dissect down to through the bone tunnel. An aspirating well drawn back a millimeter approximately 20 cc of bone marrow aspirate was used. Admixed with the allograft and autograft bone that will be used. Computer navigation was used this was done by placing 2 pins into the right iliac crest. Placing fiducial on this and then the C-arm was brought in and spun on the patient and the information from the C-arm was then loaded in the computer and this was later used for placing screws under computer guidance. The technique for placing the pedicle screws was to use a drill followed by the gearshift probe linked to computer navigation. Followed by the ball probe to feel the superior inferior medial lateral grover of the pedicles. Then placement of the screws with computer navigation. Was done at each pedicle. Screws were placed at L 4 bilaterally and L 5 bilaterally. The L4 screws were directed more inferior. The previous screw holes were used. The S1 screw on the left did not get a good purchase so I elected to not place a screw at S1. On the left side but I did on the right side. Next attention was brought to performing the laminectomy ofL4. This was done using the high-speed bur Kerrisons and curettes. Once the lamina was removed and then attention was brought to performing a partial facetectomy on the contralateral side. This was done again using the high-speed bur curettes and Kerrisons. The ligamentum flavum was taken down bilaterally from L4 to L5. Attention was then brought to the facet on the ipsilateral side. The facet was taken down. The L5 nerve was decompressed as it passed around the L5 pedicle. The laminectomy was done for purposes of decompressing the nerve as well as placement of the cage. The L4 nerve was identified as it traversed through the L4/5 foramen. The thecal sac was identified and retracted. The L4/5 disc base was identified. Using a knife the disc base was opened. And then sequential luly were placed. The first shaver was a 6 and the last shaver was a 7. Using a pituitary and down going curette the endplates were scraped and disc material was removed from the space. Once adequate decompression of the disc base was felt to be had. Osteoamp sponge was packed into the anterior aspect of the disc base. Then a size 8 cage from [employer] was placed after packing osteoamp into the cage. While placing the cage the thecal sac and L5 nerve was protected. C arm was used to ensure that the cages placed in the appropriate position. Attention was then brought to attaching the rods to the screws placed in the L4 bilaterally, L5 bilaterally and S1 on the right. Caps were torqued into position. Locking the construct in place. Wound was copiously irrigated and then attention was brought to decorticating the facets and transverse processes laterally. Bone that was taken down from the lamina was used along with osteoamp fibers and sponges were packed into the lateral gutters along the facet joints. This was done bilaterally. Wound was then closed in a layered fashion starting with the thoracolumbar fascia. 0-vicryl was used the sub cutaneous tissue was closed with 2-0 vicryl and skin with 4-0 monocryl. Glue was then used to seal the skin and a steril dressing was applied. Patient was then placed in the supine position. The endotracheal tube was removed and patient was transferred to the PACU in stable condition.
[2025-07-25] MEDS: HYDROmorphone 1 mg/mL INJ 1ml 0.5 MG IVP ×2 (13:10→13:20)
[2025-07-25] MEDS: acetaminophen 1,000 MG/100 ML PIGGYBACK 400 MG IV (13:35)
[2025-07-25] MEDS: HYDROcodone-acetaminophen 10-325 mg Tablet PO ×3 (14:50→23:00)
--- NOTE | 2025-07-25 15:36 | ANE.PACU2 ---
Inpatient post-anesthesia follow up: Airway intact: Yes Vital signs: Temperature 98.5 F Pulse Rate 66 Respiratory Rate 18 Blood Pressure 105/74 Pulse Oximetry 97 Oxygen Delivery Me thod Room Air Oxygen Flow Rate 10 Fraction of Inspir ed Oxygen Hydration adequate: Yes Nausea and vomiting: No Pain level: 1 Mental status: Baseline
--- NOTE | 2025-07-25 16:17 | XR_ITS ---
WS: [id number] Exam: XR lumbar spine 2-3V* [id number] Date/Time of Exam: 07/25/2025 4:17 PM Reason For Exam: or pic, plif DLP: Comparison 03/15/2025. Intraoperative lateral and AP C-arm images of the lower lumbar spine are submitted. Images depict a posterior fusion revision. Pedicle screws and posterior sahil on the RIGHT extend from L4-S1. Pedicle screws and sahil fixation on the LEFT bridging L4 and L5. Disc spacer at L4-5. The fusion is in satisfactory alignment.
[2025-07-25] MEDS: diclofenac 1% Topical Gel 100 gm 1 APPLIC TOPICAL (17:52)
[2025-07-26] VITALS: BP 98/60; PULSE 65; RESP 17; TEMP 36.6; O2SAT 96
[2025-07-26] MEDS: ceFAZolin 2,000 mg SDV 2000 MG IVP ×2 (01:32→09:26)
[2025-07-26 04:00] VITALS: BP 96/60; PULSE 71; RESP 16; TEMP 36.6; O2SAT 97
--- NOTE | 2025-07-26 05:45 | PC.NURSE ---
Pt hemevac drain dressing soiled with blood, reinforcecd with abd. Drain output 75ml so far for the night. Medial incision to back c/d/i.
[2025-07-26] MEDS: HYDROcodone-acetaminophen 10-325 mg Tablet PO (07:28)
[2025-07-26 08:00] VITALS: BP 108/78; PULSE 60; PULSE 70; RESP 18; RESP 20; TEMP 36.4; O2SAT 95; O2SAT 96
--- NOTE | 2025-07-26 09:57 | PM.DCS ---
Discharge Providers Date of Admission: 07/25/25 13:56 Date of Discharge: July 26, 2025 Attending Provider at Admission: Jason Christiansen DO Attending Provider at Discharge: Jason Christiansen DO Primary Care Provider: Britany Wolff MD Reason for Visit Reason for Visit: M43.16 Physical Exam Narrative: Patient is resting in bed comfortably Urinary Catheter Management: Vila: Cath Placed During This Visit: yes Reason for Continuing Indwelling Catheter: Perioperative Use in Selected Surgeries Urinary Catheter Date of Insertion: 07/25/25 Urinary Catheter Time of Insertion: 10:15 Discharge Data Studies Completed and Pending Completed Studies During Hospitalization Category Date Time Status XR lumbar spine 2-3V* [id number] Routine Exams 07/25/25 16:17 Completed Vitals Last Vital Signs Temp 97.5 F L 07/26/25 08:00 Pulse 60 07/26/25 08:00 Resp 20 H 07/26/25 08:00 BP 108/78 07/26/25 08:00 Pulse Ox 95 07/26/25 08:00 O2 Del Method Room Air 07/26/25 08:00 O2 Flow Rate 1 07/25/25 16:00 Discharge Plan Discharge Patient Disposition: Home Condition: Stable Prescriptions: New hydrocodone-acetaminophen 10-325 mg tablet 1 tab PO Q4H PRN (Reason: pain) 7 Days Qty: 42 0RF Continued (DME) CAM walker See Rx Instructions .Route .MEDSUPPLY Qty: 1 0RF Rx Instructions: As directed (DME) ASO to left See Rx Instructions .Route .MEDSUPPLY Qty: 1 0RF Rx Instructions: As directed by HOME Length of need is [id number] days diclofenac sodium [Voltaren Arthritis Pain] 1 % gel 2 g topical QID Qty: 100 4RF Rx Instructions: apply to base of thumb (DME) right thumb Gauntlet See Rx Instructions .Route .MEDSUPPLY Qty: 1 0RF Rx Instructions: As directed pseudoephedrine HCl [Sudogest] 30 mg tablet 60 mg PO Q8H PRN (Reason: Nasal Congestion) Qty: 20 0RF albuterol sulfate 90 mcg/actuation HFA aerosol inhaler 2 puff INHALATION Q6H PRN (Reason: shortness of breath or wheezing) Qty: 8.5 4RF PNV [id number] 30 mg iron-10 mg iron-1 mg capsule 1 cap PO DAILY Qty: 90 3RF potassium chloride 10 mEq tablet extended release 10 meq PO BID levothyroxine 50 mcg tablet 50 mcg PO DAILY Rx Instructions: TAKE ONE TABLET BY MOUTH DAILY for 90 DAYS omeprazole 20 mg capsule,delayed release(DR/EC) 20 mg PO DAILY Rx Instructions: TAKE ONE CAPSULE BY MOUTH TWICE DAILY hydrochlorothiazide 25 mg tablet 25 mg PO DAILY Rx Instructions: TAKE ONE TABLET BY MOUTH DAILY fluoxetine 20 mg capsule 20 mg PO DAILY Rx Instructions: TAKE ONE CAPSULE BY MOUTH DAILY for 90 DAYS Discontinued alprazolam 0.5 mg tablet 0.5 mg PO QID PRN (Reason: Anxiety) 30 Days Qty: 120 3RF hydrocodone-acetaminophen 10-325 mg tablet 1 tab PO BID PRN (Reason: pain) 30 Days Qty: 60 0RF Other Ambulatory Orders: DME: [facility] (Order) Location: None Selected Ordered By: Jason Christiansen Referrals: [facility] [Outside] Discharge Diet: Advance as tolerated Discharge Activity: Limit activity as instructed Patient Instructions: Acute Wound Care (DC), Opioid Safety, Post Anesthesia Care, Patient Portal & Lou Instructions Activity Restrictions/Additional Instructions: Okay to restart alprazolam when you get home Thank you for choosing [facility] for your care! The following is a list of instructions, from your provider, to follow upon your discharge to ensure you have the optimal recovery from your recent injury or surgery. Follow-up care is a [place] part of your treatment and safety. Be sure to make and go to all appointments, and call your doctor if you are having problems. If you do not already have a follow-up appointment made, call Dr. Crhistiansen's office in the next 1-3 days to make follow up appointment for 1 weeks at [phone]. It is also a good idea to know your test results and keep a list of the medicines you take. Medications will be prescribed for you at your provider?s discretion. These medications are to be used as instructed;if they are taken more often that prescribed they will not be refilled early and in most cases will not be refilled at all. > When a refill is needed,you should contact our office 2-3 business days beforeyour prescription runs out. Medications will NOTbe refilled by medical radiation therapist providers after hours! > Many pain medications contain Tylenol (Acetaminophen). Do not consume more than 4,000 mg of Tylenol per day in total with any combination of medications. > Pain medications can cause constipation. Please use an over the counter stool softener as directed, while taking pain medications. Consult your local pharmacist with questions or recommendations on stool softeners. If constipation persists, contact our office or your primary care provider. > While under our care,you are not to receive pain medications or other controlled substances from any other provider unless our office is notified and approves. Any attempts to do so will result in refusal to prescribe any further pain medications and possible dismissal from our practice. ? Your wound and/or dressing should remain clean and dry for 2 days after surgery. On postoperative day 2 (48 hours after your surgery) the dressing (if present) should be removed and it is okay to shower and get the incision wet. Pat dry afterwards. No further dressing should be required from that point on. Do not put any creams or ointments on the incision > It is normal for there to be a small amount of discharge (bloody or blood tinged) present from a surgical wound for the first 1-3days. > The wound should be examined twice a day for signs of infection. Mild redness or bruising is to be expected but indications that an infection maybe starting would include;An increase in redness, swelling, or discharge, a foul odor present around the incision, and/or a fever greater than 101 ?F ? Showering is permitted, however we ask that you do not take a bath, sit in a whirlpool / Jacuzzi, or go swimming for 1 month. For only the first 2 days after surgery, lt wilt be necessary for you to cover your wound/dressing with plastic and tape to keep it dry. ? Walking is essential for the healing process after surgery. We would like you to slowly advance your walking. This should be done on relatively flat clear ground (inside or out) or can be done on a treadmill. Remember this goal does not have to happen all at once, slowly increase your distance and duration. This can be broken into more more than one walk per day as tolerated. Patients who walk as directed after surgery rarely require Physical Therapy. In the unlikely event this issue arises your provider will direct hospital staff to make the appropriate arrangements. ? No lifting over 5 pounds {a gallon of milk) or bending/twisting until further notice. Each of these activities places an unnecessary amount of stress onto the body and can impede the delicate healing process. > Instead of bending at the waist, keep your back straight and bend at the knees. > Instead of twisting your torso, keep your back straight and turn your entire body with your feet. ? You may sleep in any position which makes you comfortable.Many patients find comfort sleeping in a reclining chair. It is not abnormal to have difficulty sleeping for the first several weeks following your surgery. We recommend trying Benadryl or Tylenol PM as directed to help with your sleeping difficulties. Both medications are over the counter and available without prescription. ? NO SMOKING!!!Smoking dramatically increases the probability of developing postoperative wound infections. ? Common complaints after lumbar and/or thoracic spine surgery include, but are not limited to: numbness and/or tingling in the legs, pain around the incision and surrounding tissues, muscle spasms, or stiffness of the middle to low back. Contact our office if these symptoms persist or if an acute change occurs. ? No driving for the first 3-5 days, and not while taking narcotics until seen at your follow-up appointment and cleared.There are no restrictions for riding on short trips, however if you take a longer trip, arrangements should be made to make regular stops to get out of the vehicle and stretch . ? Swelling is an unfortunate event that will take place with any surgery and is the primary source of your postoperative discomfort. While walking and regular approved activities helps control inflammation, there are additional steps you can take to minimize swelling. > Place ice over the surgical site and surrounding tissue for twenty minutes, followed by applying a low/medium heat (heating pad) for an additional twenty minutes every 1-2 hours as needed for pain relief. > You may use of over the counter anti-inflammatory medications (Ibuprofen, Motrin, Aleve, Advil, etc) as directed on the package label. These types of medicines will significantly reduce the amount of discomfort you experience after surgery from swelling. It should be noted that if you have an allergy to any of these medications, or a history of ulcers or kidney disease you should consult your primary care provider prior to starting these medications. Discharge Attestations Time Spent in Discharge Care*: less than 30 min Quality Metrics Clinical Quality Measures [ No reported AMI, CVA or VTE this stay] Coding Level of Care Code Acute Code for Chg Fwd
[2025-07-26 11:03] VITALS: BP 117/76; PULSE 77; RESP 18; TEMP 36.8; O2SAT 97
[2025-07-26 13:38] VITALS: BP 117/76; PULSE 77; RESP 18; TEMP 36.8; O2SAT 97
== END 2025-07-26 13:00 | disposition home or self-care (01) ==
LOC: MEDSURG 13:58
PROVIDERS: Admitting Provider Orthopaedic Surgery; PCP Family Medicine; Visit Provider Orthopaedic Surgery
PROC: (CPT 22633; principal; 2025-07-25 09:05)
DX: M48.062 Spinal stenosis, lumbar region with neurogenic claudication (principal); J44.9 Chronic obstructive pulmonary disease, unspecified; I10 Essential (primary) hypertension; K21.9 Gastro-esophageal reflux disease without esophagitis; E05.90 Thyrotoxicosis, unspecified without thyrotoxic crisis or storm; F41.8 Other specified anxiety disorders; F17.200 Nicotine dependence, unspecified, uncomplicated
CPT/HCPCS: 22633; 22853; 61783; 20930; 20936; 22840; 51702; 72100; 76000; 97116; 97161; A4649; C1713; C1776; C9359; G0378; J0131; J0690; J1100; J1171; J1644; J1885; J2250; J2405; J2704; J3010; J3260; J3373; J3490; J7030; J7120; J9999

== ENCOUNTER → 2025-08-09 12:56 | Outpatient (BNVA) | payer OTHER, MEDICAID, SELFPAY | PROVIDERS: PCP Family Medicine; Visit Provider Orthopaedic Surgery | DX: Z98.890 Other specified postprocedural states (principal); Z98.1 Arthrodesis status | CPT/HCPCS: 99024 ==

== ENCOUNTER → 2025-09-06 12:58 | Outpatient (BNVA) | payer OTHER, MEDICAID, SELFPAY | PROVIDERS: PCP Family Medicine; Visit Provider Orthopaedic Surgery | DX: Z98.890 Other specified postprocedural states (principal); Z98.1 Arthrodesis status | CPT/HCPCS: 72100; 99024 ==

== ENCOUNTER 2025-09-19 14:02 | Emergency (ER) | payer MEDICARE, MEDICAID, SELFPAY ==
[2025-09-19 14:07] VITALS: BP 141/85; PULSE 96; RESP 18; TEMP 36.8; O2SAT 97
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
== END 2025-09-19 16:05 | disposition home or self-care (01) ==
PROVIDERS: Emergency Provider Physician Assistant; PCP Family Medicine
DX: M54.50 Low back pain, unspecified (principal); Z04.1 Encounter for examination and observation following transport accident; Z72.0 Tobacco use; I10 Essential (primary) hypertension
CPT/HCPCS: 72131; 99284